=== PATIENT | male | born 2000 | race Caucasian/White ===

== ENCOUNTER 2024-07-26 06:06 | Emergency (ER) | payer SELFPAY ==
[2024-07-26] MEDS ORDERED: predniSONE 20 MG TAB ONE (06:23)
[2024-07-26] MEDS ORDERED: DIPHENHYDRAMINE 25 MG TAB/CAP ONE (06:23)
[2024-07-26] MEDS ORDERED: FAMOTIDINE 20 MG TAB ONE (06:24)
--- NOTE | 2024-07-26 06:54 | ER ---
Nurse's Notes [facility] Name: Tavares Davies Age: 24 yrs Sex: Male : 2000 Arrival Date: 07/26/2024 Time: 06:06 Bed 5 Private MD: Diagnosis: Lip swelling Presentation: 07/26 06:17 Chief complaint: Patient states: right sided lip swelling and hives on upper thighs x1 lg3 hr. 2 prior episodes this week. Coronavirus screen: Client denies travel out of the [place] in the last 14 days. At this time, the client does not indicate any symptoms associated with coronavirus-19. Ebola Screen: No symptoms or risks identified at this time. Initial Sepsis Screen: Does the patient meet any 2 criteria? No. Patient's initial sepsis screen is negative. Does the patient have a suspected source of infection? No. Patient's initial sepsis screen is negative. Risk Assessment: Do you want to hurt yourself or someone else? Patient reports no desire to harm self or others. Onset of symptoms was July 26, 2024. 06:17 Method Of Arrival: Ambulatory lg3 06:17 Acuity: QUIQUE 4 lg3 Triage Assessment: 06:19 General: Appears in no apparent distress. comfortable, Behavior is calm, cooperative. lg3 Pain: Denies pain. EENT: No signs and/or symptoms were reported regarding the EENT system. Oral mucosa is moist. Neuro: No deficits noted. Hillman Agitation-Sedation Scale (RASS): 0 - Alert and Calm Level of Consciousness is awake, alert, obeys commands, Oriented to person, place, time, situation. Cardiovascular: No deficits noted. Capillary refill < 3 seconds Clubbing of nail beds is absent JVD is absent Patient's skin is warm and dry. Respiratory: No deficits noted. Airway is patent Respiratory effort is even, unlabored, Respiratory pattern is regular, symmetrical, Breath sounds are clear bilaterally. GI: No deficits noted. No signs and/or symptoms were reported involving the gastrointestinal system. : No signs and/or symptoms were reported regarding the genitourinary system. Derm: Skin is intact, is healthy with good turgor, Skin is dry, Skin is normal, Skin temperature is warm Rash noted that is urticaria, on right quadriceps and left quadriceps Reports itching. Musculoskeletal: Circulation, motion, and sensation intact. Range of motion: intact in all extremities, Swelling present in upper lip and lower lip. Historical: - Allergies: 06:19 No Known Allergies; lg3 - Home Meds: 06:19 Insulin: Regular Sub-Q [Active]; lg3 - PMHx: 06:19 Diabetes mellitus; lg3 - PSHx: 06:19 None; lg3 - Immunization history:: Adult Immunizations up to date. - Infectious Disease History:: Denies. - Social history:: Smoking status: Patient denies any tobacco usage or history of. Patient/guardian denies using alcohol, street drugs. Screenin:27 [facility] ED Fall Risk Assessment (Adult) History of falling in the last 3 months, dd2 including since admission No falls in past 3 months (0 pts) Confusion or Disorientation No (0 pts) Intoxicated or Sedated No (0 pts) Impaired Gait No (0 pts) Mobility Assist Device Used No (0 pt) Altered Elimination No (0 pt) Score/Fall Risk Level 0 - 2 = Low Risk Oriented to surroundings, Maintained a safe environment, Educated pt \T\ family on fall prevention, incl call for assistance when getting out of bed, Assessed \T\ reinforced patient's understanding of fall precautions, Hourly rounding (assess needs \T\ fall precautionary measures) done. Abuse screen: Denies threats or abuse. Nutritional screening: No deficits noted. Tuberculosis screening: No symptoms or risk factors identified. Assessment: 06:27 General: see triage assessment. lg3 06:56 Reassessment: Patient appears in no apparent distress at this time. No changes from lg3 previously documented assessment. Patient and/or family updated on plan of care and expected duration. Pain level reassessed. Patient is alert, oriented x 3, equal unlabored respirations, skin warm/dry/pink. Patient states feeling better. Patient states symptoms have improved. Vital Signs: 06:17 BP 137 / 101; Pulse 100; Resp 17 S; Temp 98.5(O); Pulse Ox 99% on R/A; Weight 99.79 kg lg3 (R); Height 5 ft. 11 in. (R); Pain 0/10; 06:55 BP 132 / 93; Pulse 76; Resp 16; Temp 98.3; Pulse Ox 97% on R/A; dd2 06:17 Body Mass Index 30.68 (99.79 kg, 180.34 cm) lg3 06:17 Pain Scale: Adult lg3 [place] Coma Score: 06:27 Eye Response: spontaneous(4). Motor Response: obeys commands(6). Verbal Response: dd2 oriented(5). Total: 15. ED Course: 06:07 Patient arrived in ED. jj6 06:09 Gunnar Boston MD is Attending Physician. rt 06:09 MICH MACK RN is Primary Nurse. dd2 06:19 Triage completed. lg3 06:19 Arm band placed on right wrist. lg3 06:27 Patient has correct armband on for positive identification. Bed in low position. Call dd2 light in reach. Client placed on continuous cardiac and pulse oximetry monitoring. NIBP monitoring applied. Door closed. Noise minimized. PO fluids given. Verbal reassurance given. 06:27 Provided Education on: call light, medications. dd2 06:27 No provider procedures requiring assistance completed. Patient did not have IV access dd2 during this emergency room visit. Patient maintains SpO2 saturation greater than 95% on room air. Administered Medications: 06:27 Drug: predniSONE PO 40 mg PO once Route: PO; dd2 06:56 Follow up: Response: No adverse reaction dd2 06:27 Drug: diphenhydrAMINE PO 50 mg PO once Route: PO; dd2 06:56 Follow up: Response: No adverse reaction dd2 06:27 Drug: Famotidine PO 20 mg PO once Route: PO; dd2 06:56 Follow up: Response: No adverse reaction dd2 Medication: 06:27 VIS not applicable for this client. dd2 Outcome: 06:53 Discharge ordered by . rt 06:57 Discharged to home ambulatory, lg3 06:57 Condition: stable 06:57 Discharge instructions given to patient, Instructed on discharge instructions, follow up and referral plans. medication usage, Demonstrated understanding of instructions, follow-up care, medications, Prescriptions given X 2, 07:07 Patient left the ED. ll1 Signatures: Joslyn Fischer RN RN lg3 Kay Valenzuela RN RN ll1 Melissa Griffith jj6 Gunnar Boston MD MD rt MICH MACK RN RN dd2
--- NOTE | 2024-07-26 06:54 | EDPHYS ---
Physician Documentation [facility] Name: Tavarse Davies Age: 24 yrs Sex: Male : 2000 Arrival Date: 07/26/2024 Time: 06:06 Bed 5 Private MD: ED Physician Gunnar Boston HPI: 07/26 06:25 This 24 yrs old Male presents to ER via Ambulatory with complaints of Lips Swelling, rt Rash. 06:25 Patient with history of insulin-dependent diabetes mellitus presents to the ED with rt swelling to the upper and lower lip as well as itchy hives on the legs. Denies any tongue swelling, difficulty breathing. This started about 1 hour prior to arrival. Has not appreciably changed. Denies any obvious inciting factors. States that this occurred 2 other times this week but resolved spontaneously. Denies other acute complaints, symptoms are mild in severity, no other aggravating elevating factors.. Historical: - Allergies: 06:19 No Known Allergies; lg3 - Home Meds: 06:19 Insulin: Regular Sub-Q [Active]; lg3 - PMHx: 06:19 Diabetes mellitus; lg3 - PSHx: 06:19 None; lg3 - Immunization history:: Adult Immunizations up to date. - Infectious Disease History:: Denies. - Social history:: Smoking status: Patient denies any tobacco usage or history of. Patient/guardian denies using alcohol, street drugs. ROS: 06:25 Constitutional: Negative for fever, chills, and weight loss, Cardiovascular: Negative rt for chest pain, palpitations, and edema, Respiratory: Negative for shortness of breath, cough, wheezing, and pleuritic chest pain, Abdomen/GI: Negative for abdominal pain, nausea, vomiting, diarrhea, and constipation, 06:25 ENT: Positive for Lip swelling, negative for tongue swelling, 06:25 Skin: Positive for rash, Exam: 06:25 Constitutional: This is a well developed, well nourished patient who is awake, alert, rt and in no acute distress. Head/Face: Normocephalic, atraumatic. Chest/axilla: Normal chest wall appearance and motion. Nontender with no deformity. No lesions are appreciated. Cardiovascular: Regular rate and rhythm with a normal S1 and S2. No gallops, murmurs, or rubs. Normal PMI, no JVD. No pulse deficits. Respiratory: Lungs have equal breath sounds bilaterally, clear to auscultation and percussion. No rales, rhonchi or wheezes noted. No increased work of breathing, no retractions or nasal flaring. Abdomen/GI: Soft, non-tender, with normal bowel sounds. No distension or tympany. No guarding or rebound. No evidence of tenderness throughout. MS/ Extremity: Pulses equal, no cyanosis. Neurovascular intact. Full, normal range of motion. Neuro: Awake and alert, GCS 15, oriented to person, place, time, and situation. Cranial nerves II-XII grossly intact. Motor strength 5/5 in all extremities. Sensory grossly intact. Cerebellar exam normal. Normal gait. 06:25 ENT: Mild swelling to the upper and lower lips, no tongue swelling, oropharyngeal edema. 06:25 Skin: Urticarial rash noted to the bilateral lower extremities, no cellulitis. Vital Signs: 06:17 BP 137 / 101; Pulse 100; Resp 17 S; Temp 98.5(O); Pulse Ox 99% on R/A; Weight 99.79 kg lg3 (R); Height 5 ft. 11 in. (R); Pain 0/10; 06:55 BP 132 / 93; Pulse 76; Resp 16; Temp 98.3; Pulse Ox 97% on R/A; dd2 06:17 Body Mass Index 30.68 (99.79 kg, 180.34 cm) lg3 06:17 Pain Scale: Adult lg3 [place] Coma Score: 06:27 Eye Response: spontaneous(4). Motor Response: obeys commands(6). Verbal Response: dd2 oriented(5). Total: 15. MDM: 06:09 Medical Screening Exam initiated rt 06:55 Differential diagnosis: Allergic reaction, angioedema, anaphylaxis. Data reviewed: rt vital signs, nurses notes. ED course: Patient with mild lip swelling, no signs of anaphylaxis, symptoms not consistent with an angioedema. Patient was given Benadryl, Pepcid, steroids without progression of symptoms. Patient states that these episodes were typical as for about 6 hours and then improve. Will prescribe patient EpiPen, he is instructed on its use. He instructed to follow-up with floor helper for further testing.. Administered Medications: 06:27 Drug: predniSONE PO 40 mg PO once Route: PO; dd2 06:56 Follow up: Response: No adverse reaction dd2 06:27 Drug: diphenhydrAMINE PO 50 mg PO once Route: PO; dd2 06:56 Follow up: Response: No adverse reaction dd2 06:27 Drug: Famotidine PO 20 mg PO once Route: PO; dd2 06:56 Follow up: Response: No adverse reaction dd2 Disposition Summary: 07/26/24 06:53 Discharge Ordered Notes: Location: Home rt Problem: new rt Symptoms: are unchanged rt Condition: Stable rt Diagnosis - Lip swelling rt Followup: rt - With: Private Physician - When: 2 - 3 days - Reason: Discharge Instructions: - Discharge Summary Sheet rt - Anaphylactic Reaction, Adult rt Forms: - Medication Reconciliation Form rt - Antibiotic Education rt - Prescription Opioid Use rt - Patient Portal Instructions rt - Leadership Thank You Letter rt Prescriptions: - EpiPen 2-[place] - inject 1 Each INTRAMUSCULAR route once; 2 Each; Refills: 0, Product Selection rt Permitted - Prednisone 20 mg Oral tablet - take 2 tablets ORAL route once daily for 4 days; 8 tablet; Refills: 0, Product rt Selection Permitted Signatures: Joslyn Fischer RN RN lg3 Gunnar Boston MD MD rt MICH MACK RN RN dd2
[2024-07-26 07:13] VITALS: BP 132/93; TEMP 98.3; O2SAT 97
== END 2024-07-26 07:07 | disposition home or self-care (01) ==
LOC: ER 06:06
DX: R22.0 Localized swelling, mass and lump, head (principal); R21 Rash and other nonspecific skin eruption; E11.9 Type 2 diabetes mellitus without complications; Z79.4 Long term (current) use of insulin
CPT/HCPCS: 99284; J7512

== ENCOUNTER 2024-09-14 18:31 | Emergency (ER) | payer OTHER ==
--- NOTE | 2024-09-14 19:14 | ER ---
Nurse's Notes [facility] Name: Tavares Davies Age: 24 yrs Sex: Male : 2000 Arrival Date: 09/14/2024 Time: 18:31 Bed DX5 Private MD: Diagnosis: Rash and other nonspecific skin eruption Presentation: 09/14 18:56 Chief complaint: Patient states: RASH ON LEGS "HIVES". Coronavirus screen: Client db denies travel out of the [place] in the last 14 days. At this time, the client does not indicate any symptoms associated with coronavirus-19. Ebola Screen: Patient negative for fever greater than or equal to 101.5 degrees Fahrenheit, and additional compatible Ebola Virus Disease symptoms Patient denies exposure to infectious person. Patient denies travel to an Ebola-affected area in the 21 days before illness onset. No symptoms or risks identified at this time. 18:56 Method Of Arrival: Ambulatory db 18:56 Onset: The symptoms/episode began/occurred 1 week(s) ago. Anaphylaxis evaluation, no db signs or symptoms of anaphylaxis were noted. Initial Sepsis Screen: Does the patient meet any 2 criteria? No. Patient's initial sepsis screen is negative. Does the patient have a suspected source of infection? No. Patient's initial sepsis screen is negative. Risk Assessment: Do you want to hurt yourself or someone else? Patient reports no desire to harm self or others. Onset of symptoms was September 08, 2024. 18:56 Acuity: QUIQUE 3 db Triage Assessment: 18:57 General: Appears in no apparent distress. comfortable, Behavior is calm, cooperative, db appropriate for age. Pain: Denies pain. Derm: Reports itching, RASH. Historical: - Allergies: 18:57 No Known Allergies; db - PMHx: 18:57 diabetes mellitus; db - Immunization history:: Adult Immunizations unknown. - Infectious Disease History:: Denies. - Social history:: Smoking status: Patient denies any tobacco usage or history of. Screenin:00 [facility] ED Fall Risk Assessment (Adult) History of falling in the last 3 months, vc1 including since admission No falls in past 3 months (0 pts) Confusion or Disorientation No (0 pts) Intoxicated or Sedated No (0 pts) Impaired Gait No (0 pts) Mobility Assist Device Used No (0 pt) Altered Elimination No (0 pt) Score/Fall Risk Level 0 - 2 = Low Risk Oriented to surroundings, Maintained a safe environment, Educated pt \\T\\ family on fall prevention, incl call for assistance when getting out of bed. Abuse screen: Denies threats or abuse. Nutritional screening: No deficits noted. Tuberculosis screening: No symptoms or risk factors identified. Assessment: 19:15 General: Appears in no apparent distress. comfortable, Behavior is calm, cooperative, vc1 appropriate for age. Pain: Denies pain. Neuro: Level of Consciousness is awake, alert, obeys commands, Oriented to person, place, time, situation, Appropriate for age. Cardiovascular: Capillary refill < 3 seconds Patient's skin is warm and dry. Respiratory: Airway is patent Respiratory effort is even, unlabored, Respiratory pattern is regular, symmetrical, Breath sounds are clear bilaterally. GI: No deficits noted. No signs and/or symptoms were reported involving the gastrointestinal system. : No deficits noted. No signs and/or symptoms were reported regarding the genitourinary system. EENT: No deficits noted. No signs and/or symptoms were reported regarding the EENT system. Derm: Skin is intact, is healthy with good turgor, Skin is dry, Skin is normal, Skin temperature is warm Rash noted that is raised, urticaria, on left leg and right leg and left arm and right arm. Musculoskeletal: Circulation, motion, and sensation intact. Range of motion: intact in all extremities. Vital Signs: 18:56 BP 172 / 99; Pulse 94; Resp 18; Temp 97.8; Pulse Ox 96% ; db ED Course: 18:33 Patient arrived in ED. mr 18:37 Ayla Marmolejo [facility]-C [facility]. kb 18:37 Gunnar Boston MD is Attending Physician. kb 18:57 Triage completed. db 18:57 Arm band placed on Patient placed in waiting room. db 19:58 seen in diagnostic chair. vc1 19:58 Provided Education on: taker benadryl. vc1 20:00 No provider procedures requiring assistance completed. Patient did not have IV access vc1 during this emergency room visit. Administered Medications: 19:34 Drug: Dexamethasone IM 10 mg IM once Route: IM; Site: left deltoid; vc1 19:58 Follow up: Response: No adverse reaction vc1 19:34 Drug: Famotidine PO 20 mg PO once Route: PO; vc1 19:50 Follow up: Response: No adverse reaction vc1 Medication: 20:00 VIS not applicable for this client. vc1 Outcome: 19:13 Discharge ordered by . angelica 19:58 Patient left the ED. vc1 19:58 Discharged to home ambulatory, vc1 19:58 Condition: stable 19:58 Discharge instructions given to patient, Instructed on discharge instructions, follow up and referral plans. Demonstrated understanding of instructions, follow-up care, Signatures: Ayla Marmolejo, BAG LINER-C BAG LINER-Wilma Baumann, Frank Reg mr Anabel Carroll, RN RN vc1 Stacia Naik, RN RN db
--- NOTE | 2024-09-14 19:14 | EDPHYS ---
Physician Documentation [facility] Name: Tavares Davies Age: 24 yrs Sex: Male : 2000 Arrival Date: 09/14/2024 Time: 18:31 Bed DX5 Private MD: ED Physician Gunnar Boston HPI: 09/14 19:25 This 24 yrs old Male presents to ER via Ambulatory with complaints of Hives. kb 19:25 Pt is a 24 year old male who presents for rash that started about a week ago. States it kb goes away, but comes back. Reports itching. Historical: - Allergies: 18:57 No Known Allergies; db - PMHx: 18:57 diabetes mellitus; db - Immunization history:: Adult Immunizations unknown. - Infectious Disease History:: Denies. - Social history:: Smoking status: Patient denies any tobacco usage or history of. ROS: 19:23 Constitutional: As per HPI kb Exam: 19:23 Constitutional: This is a well developed, well nourished patient who is awake, alert, kb and in no acute distress. Head/Face: Normocephalic, atraumatic. ENT: Moist Mucous membranes Cardiovascular: Regular rate Respiratory: Respirations even and unlabored. No increased work of breathing. Talking in full sentences MS/ Extremity: Pulses equal, no cyanosis. Neurovascular intact. Full, normal range of motion. Neuro: Awake and alert, GCS 15, oriented to person, place, time, and situation. 19:23 Skin: consistent with contact dermatitis, on the right arm, left arm, right leg and left leg, Vital Signs: 18:56 BP 172 / 99; Pulse 94; Resp 18; Temp 97.8; Pulse Ox 96% ; db MDM: 18:37 Medical Screening Exam initiated kb 19:24 Differential diagnosis: hives, contact dermatitis, parasitic rash. Data reviewed: vital kb signs, nurses notes. Counseling: I had a detailed discussion with the patient and/or guardian regarding the historical points, exam findings, and any diagnostic results supporting the discharge/admit diagnosis, the need for outpatient follow up, a family practitioner, to return to the emergency department if symptoms worsen or persist or if there are any questions or concerns that arise at home. ED course: Pt requests shot of steroids because that made the rash go away last time.. Administered Medications: 19:34 Drug: Dexamethasone IM 10 mg IM once Route: IM; Site: left deltoid; vc1 19:58 Follow up: Response: No adverse reaction vc1 19:34 Drug: Famotidine PO 20 mg PO once Route: PO; vc1 19:50 Follow up: Response: No adverse reaction vc1 Disposition: 20:02 Co-signature as Attending Physician, Gunnar Boston MD I reviewed the patient's care rt provided by the Advanced Practice Provider and agree with the diagnosis and treatment plan. Disposition Summary: 09/14/24 19:13 Discharge Ordered Notes: Location: Home kb Condition: Stable kb Diagnosis - Rash and other nonspecific skin eruption kb Followup: kb - With: Emergency Department - When: As needed - Reason: Worsening of condition Followup: kb - With: Private Physician - When: 2 - 3 days - Reason: Recheck today's complaints, Continuance of care, Re-evaluation by your physician Discharge Instructions: - Discharge Summary Sheet kb - Rash, Adult, [id number] kb - Contact Dermatitis, [id number] kb Forms: - Medication Reconciliation Form kb - Antibiotic Education kb - Prescription Opioid Use kb - Patient Portal Instructions kb - Leadership Thank You Letter kb Signatures: Ayla Marmolejo, ACCOUNTANT HELPER-C ASIF-Anabel Landrum RN RN vc1 Stacia Naik, RN RN db Gunnar Boston MD MD rt
[2024-09-14] MEDS ORDERED: dexAMETHasone 10 MG/ML VIAL ONE (19:29)
[2024-09-14] MEDS ORDERED: FAMOTIDINE 20 MG TAB ONE (19:29)
[2024-09-14 20:02] VITALS: BP 172/99; TEMP 97.8; O2SAT 96
== END 2024-09-14 19:58 | disposition home or self-care (01) ==
LOC: ER 18:31
DX: R21 Rash and other nonspecific skin eruption (principal)
CPT/HCPCS: 96372; 99284; J1100